=== PATIENT | female | born 1945 | race Caucasian/White ===

== ENCOUNTER 2022-09-25 12:43 | Emergency (ER) | payer MEDICARE, OTHER ==
[~2022-09-25] VITALS: Ht 149.9 cm; Wt 62.1 kg
[2022-09-25 12:59] VITALS: BP 173/87
[2022-09-25] MEDS ORDERED: IBUPROFEN 600 MG TAB PO ONE (13:55)
[2022-09-25] MEDS ORDERED: IBUP-2213 PO (14:22)
--- NOTE | 2022-09-25 14:31 | NUR ---
CALLED FOR PT IN LOBBY AND OUTSIDE, NO RESPONSE.
--- NOTE | 2022-09-25 14:40 | NUR ---
pt called in lobby and outside, no response
[2022-09-25 15:02] VITALS: BP 173/87
--- NOTE | 2022-09-25 15:02 | NUR ---
pt left without dx paperwork .
== END 2022-09-25 15:02 | disposition home or self-care (01) ==
LOC: MED 12:43
DX: M17.12 Unilateral primary osteoarthritis, left knee (principal); Z79.899 Other long term (current) drug therapy
CPT/HCPCS: 73562; 99283